=== PATIENT | male | born 1965 | race Caucasian/White ===

== ENCOUNTER 2016-12-26 23:59 | Emergency (ER) | payer MEDICARE, OTHER ==
--- NOTE | ~2016-12-26 | CT17 ---
[facility] A Service of [facility] & [facility] RADIOLOGY TEXT RESULTS PATIENT: DELMA PATEL LOCATION: [place] : 65 UNIT #: [id number] AGE: [address]: Evan Tejeda MD SEX: M ORDER DR: [id number] [facility] [address] [place], [place] [address] [id number] E MR#: [id number] Acc #: [id number] NAME: DELMA PATEL : 1965 SEX: M STUDY DATE/TIME: 12/27/2016 0:42 UNIT: [place] ROOM: STUDY DESCRIPTION: CT Angio Head Attending Physician: Evan Tejeda M.D. Ordering Physician: Evan Tejeda M.D. Primary Care Physician: Primary Care Physician No MEDICAL IMAGING REPORT This report is preliminary unless electronic signature is present EXAM CT scan head and neck with angiographic reconstructions. INDICATIONS Slurred speech, confusion beginning within the last four hours. COMPARISON Head CT of earlier the same day. The patient was given 80 mL of Isovue 370 and spiral imaging was performed from the aortic arch through the brain. 3-D reconstructions of the arterial structures were generated. NASCET criteria utilized. This CT exam was performed with one or more of the following radiation dose reduction techniques: automatic exposure control, adjustment of mA and/or kV according to patient size, and iterative reconstruction. FINDINGS The lung apices are clear. The thyroid gland, submandibular glands and parotid glands are normal. The ventricles and subarachnoid spaces are normal. There are no masses or extraaxial fluid collections or hemorrhage. Vascular findings: The aortic arch is normal in size. The great vessels are patent with a common origin for the common carotid artery on the left and the brachiocephalic artery. The vertebral arteries arise from subclavian arteries and left one is slightly larger than right. They appear normal and they unite to form the basilar artery. The right common carotid artery has a few small calcified plaques. There are calcified plaques in the carotid bifurcation region. There is no significant stenosis. The same findings are noted on the left side where there is no significant stenosis. The left posterior cerebral artery arises from the anterior circulation. The right posterior cerebral artery arises from the basilar artery. The middle and anterior cerebral arteries are normal in STS. [facility] A Service of [facility] & [facility] RADIOLOGY TEXT RESULTS PATIENT: DELMA PATEL LOCATION: [facility] : [birth year] UNIT #: [id number] AGE: [address]: Evan Tejeda MD SEX: M ORDER DR: appearance. The stenosis on the right in the internal artery is calculated at 35% and on the left is calculated at 30%. Bi blockages or stenoses are visible in the brain. IMPRESSION 1. Mild less than 35% diameter stenosis bilaterally in the proximal internal carotid arteries. 2. Otherwise study is normal. Dictated by... Lucius Horton M.D. THIS IS AN ELECTRONICALLY VERIFIED REPORT Lucius Horton M.D. at 12/27/2016 1:23 PM Zach TD: 12/27/2016 09:06 JOB #: [id number] MEDICAL IMAGING REPORT Page 1 of 1 COPY
--- NOTE | ~2016-12-26 | CT71 ---
[facility] A Service [facility] RADIOLOGY TEXT RESULTS PATIENT: DELMA PATEL LOCATION: [place] : 65 UNIT #: [id number] AGE: [address]: Evan Tejeda MD SEX: M ORDER DR: [id number] [id number] [place], [place] [address] [id number] E MR#: [id number] Acc #: [id number] NAME: DELMA PATEL : 1965 SEX: M STUDY DATE/TIME: 12/27/2016 0:29 UNIT: [place] ROOM: STUDY DESCRIPTION: CT Head Wo Contrast Attending Physician: Evan Tejeda M.D. Ordering Physician: Evan Tejeda M.D. Primary Care Physician: Primary Care Physician No MEDICAL IMAGING REPORT This report is preliminary unless electronic signature is present EXAM CT scan of the brain without contrast INDICATION Slurred speech and confusion for about 4 hours COMPARISON 08/27/[address] exam was performed with one or more of the following radiation dose reduction techniques: automatic exposure control, adjustment of mA and/or kV according to patient size, and iterative reconstruction. FINDINGS Axial noncontrast images were obtained from the skull base to the vertex. Ventricular size and configuration are normal. There is no evidence of acute infarct or hemorrhage. There are no extra-axial fluid collections. No mass lesion or mass effect is seen. There are no skull fractures. IMPRESSION Normal noncontrast head CT. Dictated by... Lucius Horton M.D. THIS IS AN ELECTRONICALLY VERIFIED REPORT Lucius Horton M.D. at 12/27/2016 1:24 PM DEON/arslan TD: 12/27/2016 08:56 JOB #: [id number] [facility] A Service [facility] RADIOLOGY TEXT RESULTS PATIENT: DELMA PATEL LOCATION: [place] : 65 UNIT #: [id number] AGE: [address]: Evan Tejeda MD SEX: M ORDER DR: MEDICAL IMAGING REPORT Page 1 of 1 COPY
--- NOTE | ~2016-12-26 | EKG ---
PATIENT: DELMA PATEL UNIT #: [id number] Ventricular Rate: 80 BPM Atrial Rate: 80 BPM P-R Interval: 184 ms QRS Duration: 94 ms Q-T Interval: 376 ms QTC Calculation(Bezet): 433 ms P [place]: 57 degrees Calculated R [place]: 67 degrees Calculated T [place]: 69 degrees Diagnosis Line: Normal sinus rhythm Diagnosis Line: Normal ECG Diagnosis Line: No previous ECGs available Diagnosis Line: Confirmed by CK WEIR MD ([id number]) on 12/28/2016 Diagnosis Line: 5:29:36 AM INTERPRETING MD: CARMELLA FALLON
--- NOTE | ~2016-12-26 | CR72 ---
[facility] A Service of [facility] RADIOLOGY TEXT RESULTS PATIENT: DELMA PATEL LOCATION: [place] : [birth year] UNIT #: [id number] AGE: [address]: Evan Tejeda MD SEX: M ORDER DR: [id number] [facility] [address] [place], [place] [address] [id number] E MR#: [id number] Acc #: [id number] NAME: DELMA PATEL : 1965 SEX: M STUDY DATE/TIME: 12/27/2016 0:39 UNIT: [place] ROOM: STUDY DESCRIPTION: CR Chest Single View Portable Attending Physician: Evan Tejeda M.D. Ordering Physician: Evan Tejeda M.D. Primary Care Physician: Primary Care Physician No MEDICAL IMAGING REPORT This report is preliminary unless electronic signature is present EXAM Portable chest INDICATION Shortness of air and weakness beginning tonight. COMPARISON 08/27/2016 FINDINGS A portable view of the chest was obtained. Heart size and vascularity are normal and the lungs are clear. Dual lead pacemaker is in good position. Bones are normal. IMPRESSION No active disease. Dictated by... Lucius Horton M.D. THIS IS AN ELECTRONICALLY VERIFIED REPORT Lucius Horton M.D. at 12/27/2016 1:23 PM Raul TD: 12/27/2016 09:02 JOB #: [id number] MEDICAL IMAGING REPORT Page 1 of 1 COPY
[2016-12-27 00:02] LABS: BASOPHIL# 0.1 X10e3 (0-0.3); BASOPHIL% 0.5 % (0-2.5); EOSINOPHIL# 0.3 X10e3 (0-0.7); EOSINOPHIL% 3.1 % (0.0-7.0); HEMATOCRIT 38.3 % (38.0-50.0); HEMOGLOBIN 12.3 gm/dL (13.0-16.0); LYMPHOCYTE# 2.4 X10e3 (1.0-3.5); MEAN CELL VOLUME 88.3 FL (83-96); MEAN CORPUSCULAR HEMOGLOBIN 28.4 PG (28-34); MEAN CORPUSCULAR HGB CONC 32.2 g/dL (30-36); MEAN PLATELET VOLUME 8.6 FL (6.5-11.5); MONOCYTE# 0.8 X10e3 (0-1.0); NEUTROPHIL# 6.4 X10e3 (1.5-7.1); NEUTROPHIL% 64.4 % (40-75); PLATELET COUNT 212 X10e3 (140-420); RED BLOOD COUNT 4.34 X10e (3.90-5.60); RED CELL DISTRIBUTION WIDTH 15.8 % (11.0-15.5)
[2016-12-27 00:03] LABS: DIFF IND NO
[2016-12-27 00:18] LABS: PARTIAL THROMBOPLASTIN TIME 24.1 SECONDS (23.5-31.3)
[2016-12-27 00:23] LABS: ALBUMIN SERUM 4.2 g/dL (3.5-5.0); ALKALINE PHOSPHATASE 42 U/L (32-92); ALT (SGPT) 20 U/L (10-40); AST (SGOT) 26 U/L (10-42); BILIRUBIN, DIRECT 0.1 mg/dL (0.0-0.2); BILIRUBIN,INDIRECT 0.5 mg/dL (0.0-0.9); BILIRUBIN,TOTAL 0.6 mg/dL (0.2-2.0); BLOOD UREA NITROGEN 11 mg/dL (9-23); BUN/CREATININE RATIO 18.33; CALCIUM SERUM 9.2 mg/dL (8.4-10.2); CARBON DIOXIDE 32 mmol/L (22-31); CHLORIDE 101 mmol/L (100-111); CREATININE SERUM 0.6 mg/dL (0.6-1.4); GLOM FILT RATE Estimated 116.5 mL/min (>60); GLUCOSE FASTING 88 mg/dL (70-110); PROTEIN TOTAL SERUM 6.9 g/dL (6.0-8.3); SODIUM 141 mmol/L (135-145)
[2016-12-27 00:25] LABS: POC - CKMB 3.5 ng/mL (0.0-7.9); POC - TROPONIN <0.05 ng/mL (<=0.05)
[2016-12-27 00:26] LABS: ALCOHOL BLOOD <5 mg/dL (0)
[2016-12-27 01:31] LABS: URINE SOURCE CLEAN CATCH
[2016-12-27 01:36] LABS: URINE APPEARANCE CLEAR; URINE BILIRUBIN NEG (NEG); URINE BLOOD NEG (NEG); URINE COLOR YELLOW; URINE GLUCOSE NEG (NEG); URINE KETONE NEG (NEG); URINE LEUKOCYTE ESTERASE NEG (NEG); URINE NITRATE NEG (NEG); URINE PH 7.5 (5-8); URINE PROTEIN NEG (NEG); URINE SPECIFIC GRAVITY 1.018 (1.003-1.035); URINE UROBILINOGEN 0.2 MG/DL (NEG)
[2016-12-27 01:40] LABS: CULTURE INDICATED? NO
[2016-12-27 01:48] LABS: AMPHETAMINE NEG (NEG); BARBITURATES NEG (NEG); BENZODIAZEPINES POS (NEG); COCAINE NEG (NEG); MARIJUANA NEG (NEG); OPIATES POS (NEG); TRICYCLIC ANTIDEPRESSANTS NEG (NEG); U METHADONE POS (NEG)
== END 2016-12-27 02:37 | disposition home or self-care (01) ==
LOC: CED 23:59
PROVIDERS: Emergency Medicine
DX: R41.0 Disorientation, unspecified (principal); F19.10 Other psychoactive substance abuse, uncomplicated; F17.200 Nicotine dependence, unspecified, uncomplicated
CPT/HCPCS: 36415; 70450; 70496; 70498; 71010; 80048; 80076; 80307; 81003; 82553; 82947; 83605; 84484; 85025; 85610; 85730; 93005; 96360; 99284; G0480; Q9967